=== PATIENT | female | born 1980 | race Native Hawaiian/Other Pacific Islander ===

== ENCOUNTER 2021-04-21 17:14 | Emergency (ER) | payer OTHER ==
[~2021-04-21] VITALS: Ht 162.6 cm; Wt 60.3 kg
[2021-04-21 18:46] LABS: ABSOLUTE NEUTROPHILS 3.5 thou/uL (1.4-8.2); BASOPHILS 0.9 % (0.0-2.0); EOSINOPHILS 1.1 % (0.0-3.0); HEMATOCRIT 36.5 % (37.0-47.0); HEMOGLOBIN 12.5 gm/dL (12.0-15.0); LYMPHOCYTES 28.6 % (24.0-44.0); MCH 30.8 pg (26.0-34.0); MCHC 34.3 g/dL (28.0-37.0); MCV 89.9 fL (80.0-100.0); MONOCYTES 6.4 % (1.0-8.0); PLATELET COUNT 324 thou/uL (150-400); RBC 4.06 mil/uL (4.20-5.00); WBC 5.6 thou/uL (4.0-11.0)
[2021-04-21 18:50] LABS: ANION GAP 11 mmol/L (7-16); BUN 12 mg/dL (7-18); CALCIUM 8.7 mg/dL (8.5-10.1); CHLORIDE 104 mmol/L (98-107); CO2 23 mmol/L (21-32); CREATININE 0.9 mg/dL (0.6-1.0); GLUCOSE 102 mg/dL (74-106); POTASSIUM 4.2 mmol/L (3.5-5.1); SODIUM 138 mmol/L (136-145)
[2021-04-21 19:00] LABS: ALBUMIN 3.9 g/dL (3.4-5.0); SGOT 71 U/L (15-37); SGPT 44 U/L (30-65); TOTAL BILIRUBIN 0.3 mg/dL (0.2-1.0); TOTAL PROTEIN 7.4 g/dL (6.4-8.2); TROPONIN-I <0.06 ng/mL (<0.06)
[2021-04-21] MEDS ORDERED: ULTRAM 50MG TAB50 MG PO (20:23)
[2021-04-21 20:33] VITALS: BP 100/57
--- NOTE | 2021-04-22 07:34 | EKG ---
[address] [place] [address] ELECTROCARDIOGRAM REPORT Name: SAM JUAREZ Room #: [facility] ([place], [place])Madhavi#: [id number] Admission: 04/21/21 Attend Phys: Discharge: 04/21/21 Date of : 78 Report #: [id number] [facility] ED Test Date: 2021-04-21 Test Time: 17:22:46 Pat Name: SAM ROLLY PIÑA Department: Room: Gender: F Medical Cash Poster: tono : 1980 Requested By: Darryl Rich Order Number: [id number] MD: Moncho Adam Measurements Intervals [place] Rate: 86 P: 46 WY: 114 QRS: 57 QRSD: 68 T: 49 QT: 349 QTc: 418 Interpretive Statements Sinus rhythm Borderline short [place] interval Abnormal R-wave progression, early transition No previous ECG available for comparison Electronically Signed On 04-22-2021 7:34:05 CDT by Moncho Adam [email or web address] <ELECTRONICALLY SIGNED> By: Moncho Adam MD, [facility] 04/22/21 0734 [id number] Moncho Adam MD, FACC /EPI
== END 2021-04-21 20:33 | disposition home or self-care (01) ==
LOC: ER 17:14
PROVIDERS: Emergency Medicine
DX: R06.00 Dyspnea, unspecified (principal); M79.605 Pain in left leg; Z88.1 Allergy status to other antibiotic agents